=== PATIENT | male | born 1945 | race Caucasian/White ===

== ENCOUNTER 2018-08-12 12:23 | Day surgery (SDC) | payer OTHER ==
[2018-08-09 10:42] VITALS: BMI 24.3
[2018-08-12] MEDS ORDERED: ROPIVACAINE HCL 0.5% 30ML VIAL ONE (14:30)
[2018-08-12] MEDS ORDERED: DEXAMETHASONE SOD PHOSPHATE/PF 10 MG/ML SDV ONE (14:30)
[2018-08-12] MEDS ORDERED: MIDAZOLAM HCL 2 MG/2 ML SINGLE DOSE VIAL ONE ×3 (14:31→14:34)
[2018-08-12] MEDS ORDERED: PROPOFOL 20 ML ONE (14:34)
[2018-08-12] MEDS ORDERED: ceFAZolin SODIUM 1 GM VIAL IVPB ONE (15:24)
[2018-08-12] MEDS ORDERED: ceFAZolin SODIUM 1 GM VIAL ONE (15:26)
--- NOTE | 2018-08-12 15:27 | HP ---
Satellite [facility] - Chief Complaint Chief Complaint: right shoulder pain - Past Medical History Allergies/Adverse Reactions: Allergies Allergy/AdvReac Type Severity Reaction Status Date / Time Penicillins Allergy Unknown Verified 08/09/18 10:42 - Current Medications Current Medications: Home Medications Medication Instructions Recorded Docusate Sodium [Colace] 100 mg PO DAILY 08/09/18 Metformin HCl [Metformin HCl ER] 500 mg PO BID 08/09/18 Polyethylene Glycol 3350 [Miralax 17 gm PO DAILY 08/09/18 255 gm Btl -] Rosuvastatin Calcium [Crestor] 10 mg PO DAILY 08/09/18 Sennosides [Senna -] 1 tab PO DAILY 08/09/18 Oxycodone HCl/Acetaminophen 1 - 2 tab PO Q6H #30 tab MDD 6 08/12/18 [Percocet 5-325 mg Tablet] Satellite Physical Exam - Physical Examination Vital Signs: Vital Signs Period Temp Pulse Resp BP Sys/Smith Pulse Ox Last 24 Hr 85 20 125/73 97 General Appearance: Well Nourished, Well Developed, Alert & Oriented x3 ENT: Clear Lung: Normal air movement Heart: Regular rate & rhythm Extremities: Other (right shoulder- + ttp, decr rom, + empty can, + neer, + cadet, nvi MRi + rct) Neurological: Intact, Alert, Oriented Satellite Impression/Plan - Impression/Plan Impression: right shoulder rct Operative Procedure: right shoulder arthroscopy with RCR, SAD Date to be Performed: 08/12/18
--- NOTE | 2018-08-12 16:22 | OP ---
Operative Note - Note: Operative Date: 08/12/18 ([facility]) Pre-Operative Diagnosis: right shoulder rct Operation: right shoulder arthroscopy with RCR, SAD Implants: arthrex speedbridge, swivelock Post-Operative Diagnosis: Same as Pre-op Surgeon: Timothy Kinsey Jewelry Coater: Nabeel Royal Anesthesiologist/LABORATORY MILLER: Donato Rabago Anesthesia: Local, MAC Specimens Removed: shavings Estimated Blood Loss (mls): 10 Operative Report Dictated: Yes
[2018-08-12] MEDS ORDERED: oxyCODONE HCL 5 MG TABLET PO PRN ×2 (17:39)
[2018-08-12] MEDS ORDERED: ONDANSETRON 4 MG/2 ML VIAL IVPUSH PRN (17:39)
[2018-08-12] MEDS ORDERED: LACTATED RINGERS SOLUTION 1,000 ML IV SCH (17:45)
[2018-08-12 19:11] VITALS: BP 144/90; PULSE 99; TEMP 99
--- NOTE | 2018-08-13 08:15 | SPEC ---
DATE OF OPERATION: 08/12/2018 PREOPERATIVE DIAGNOSIS: Right rotator cuff tear. POSTOPERATIVE DIAGNOSIS: Right rotator cuff tear. PROCEDURE: Arthroscopy, right shoulder; subacromial decompression; and right rotator cuff repair arthroscopically. SURGICAL ATTENDING: Timothy Kinsey MD GAS USAGE METER CLERK: JAM Argueta ANESTHESIA: Regional and general. CLOSURE: An Arthrex SpeedBridge as well as an additional SwiveLock with FiberWire suture, 3-0 nylon for skin. ESTIMATED BLOOD LOSS: Negligible. COMPLICATIONS: None. CONDITION: To recovery room in stable condition. DESCRIPTION OF OPERATIVE PROCEDURE: Patient taken to the operating room on August 12, 2018. Regional and general anesthesia were administered by the anesthesiologist. IV Keflex was administered prophylactically prior to the case. Patient placed in the beach-chair position with all prominences well padded. Right shoulder area was prepped and draped in the usual sterile fashion. First a diagnostic arthroscopy of the glenohumeral joint was performed. A posterior portal was made 2 fingerbreadths below the acromion first with a 15 blade followed by a blunt trocar. The scope revealed the following: Intact glenoid and humeral head articular cartilage, intact labrum circumferentially, intact biceps and biceps anchor, no loose bodies in the axillary pouch, intact subscapularis to its insertion. Looking superiorly the rotator cuff was seen to be displaced off the greater tuberosity. The fluid was drained from the shoulder and the trocar was removed. The posterior trocar was redirected in the subacromial space. An accessory lateral and anterior portal was then made with a 15 blade followed by a blunt trocar. A bursectomy was performed using the ArthroCare device and a shaver through the lateral portal. An acromioplasty was then performed debriding the bone up until there was sufficient space in the subacromial space, removing a subacromial spur. Soft tissue encasing the humeral head was debrided using a shaver, exposing a typical crescent-shaped rotator cuff tear and displacement. Traction on the tear revealed easily reducible to the greater tuberosity. The tuberosity itself was burred to remove all soft tissue and arranged to have a bleeding surface to map down the rotator cuff. Two medial row anchors with preloaded FiberTape sutures were malleted and screwed into the bone, 1 anterior and 1 posteriorly. The sutures were cut and then passed in an cnmt fashion from anterior to posterior using a Scorpio device and being delivered through the anterior portal. One anterior limb and 1 posterior limb were then placed through the eyelet hole of a lateral row anchor and was malleted and screwed into place on the lateral row further down the greater tuberosity. The remaining anterior-posterior limb was then malleted through another lateral row anchor. One was situated more anteriorly. One was more posteriorly, achieving excellent matting down of the rotator cuff. There was still a certain portion of the rotator cuff that was not fixated posteriorly. A FiberWire suture placed in a horizontal mattress formation was placed using a Scorpio needle, punch and then was fixated to the greater tuberosity with an extra SwiveLock anchor. Excellent fixation of the rotator cuff was obtained. All sutures were cut flush. Range of motion revealed excellent clearance in the subacromial space and excellent fixation of the rotator cuff. The fluid was drained from the shoulder. The portals were then closed using 3-0 nylon horizontal mattress suture. Sterile pressure Aquacel dressing was applied with a shoulder immobilizer. Patient awakened from anesthesia and transferred to the recovery room in stable condition. No complication. Estimated blood loss negligible. Maria E [id number]
--- NOTE | 2018-08-14 18:17 | PATH ---
Surgical Pathology Report Patient Name: CATIA MONCADA Med. Rec. #: [id number] /Age/Gender: 1945 (Age: 73) / M Account: [id number] Location: [facility] SURGICAL Taken: 08/12/2018 Received: 08/13/2018 Reported: 08/14/2018 Physicians: Timothy Kinsey M.D. Specimen(s) Received RIGHT SHOULDER SHAVINGS Clinical History Right shoulder tear Final Diagnosis RIGHT SHOULDER SHAVINGS: FRAGMENTS OF BONE, SKELETAL MUSCLE, FIBROCARTILAGINOUS TISSUE, AND SYNOVIAL TISSUE WITH DEGENERATIVE CHANGE. Electronically Signed Mame Avalos M.D. Gross Description Received in formalin, labeled "right shoulder shavings," is a 4.0 x 3.5 x 0.3 cm. aggregate of roland-yellow soft tissue fragments. A retail sales representative portion is submitted in one cassette. /08/13/201808/13/2018
== END 2018-08-12 19:10 | disposition home or self-care (01) ==
LOC: JASU-SURG 12:23
PROVIDERS: ATTEND Orthopaedic Surgery
PROC: 0RNJ4ZZ Release Right Shoulder Joint, Percutaneous Endoscopic Approach (ICD-10-PCS; principal; 2018-08-12 14:30)
PROC: 0LQ14ZZ Repair Right Shoulder Tendon, Percutaneous Endoscopic Approach (ICD-10-PCS; 2018-08-12 14:30)
DX: M75.101 Unspecified rotator cuff tear or rupture of right shoulder, not specified as traumatic (principal)
CPT/HCPCS: 82962; 88304-TC; 94760